=== PATIENT | female | born 1955 | race Caucasian/White ===

== ENCOUNTER → 2018-06-19 | Outpatient (CLI) | payer MEDICARE, BC ==
--- NOTE | 2018-06-19 17:12 | BD ---
EXAMINATION TYPE: Axial Bone Density DATE OF EXAM: 06/19/2018 COMPARISON: NONE CLINICAL HISTORY: 63-year-old female postmenopausal screening Height: 63.2 IN Weight: 202 LBS FRAX RISK QUESTIONS: Family History (Parent hip fracture): YES FATHER AGE 80 RISK FACTORS HISTORY OF: Active: YES Postmenopausal woman: AGE 49 MEDICATIONS: Additional Medications: CALCIUM, VIT D, TRAZODONE, LAMICTAL, PRISTIQUE, ACID REFLUX MEDS Additional History: BREAST CANCER WITH CHEMO AND RADIATION AGE 57 EXAM MEASUREMENTS: Bone mineral densitometry was performed using the MaxLinear System. Bone mineral density as measured about the Lumbar spine is: ----- L1-L4(G/cm2): 1.151 T Score Values are as follows: ----- L2: -0.1 ----- L3: 1.5 ----- L4: -0.8 ----- L1-L4: -0.2 Bone mineral density BASELINE Bone mineral density about the R hip (g/cm2): 0.775 Bone mineral density about the L hip (g/cm2): 0.777 T Score values are as follows: -----R Neck: -1.9 -----L Neck: -1.9 -----R Total: -1.1 -----L Total: -0.9 Bone mineral density BASELINE IMPRESSION: Osteopenia (T Score between -2.5 and -1). There is slightly increased risk of fracture and the patient may be considered for treatment. Re-Screen 2-5 years. NOTE: T-SCORE=SD OF THE YOUNG ADULT MEAN.
== END ==
LOC: RADBDWWP 12:40
PROVIDERS: ATTEND Family Medicine
DX: Z13.820 Encounter for screening for osteoporosis (principal); M85.80 Other specified disorders of bone density and structure, unspecified site; Z78.0 Asymptomatic menopausal state
CPT/HCPCS: 77080

== ENCOUNTER → 2019-04-18 | Outpatient (CLI) | payer MEDICARE, BC ==
--- NOTE | 2019-04-18 14:07 | XR ---
Lumbosacral spine HISTORY: Right sciatic pain, increasing low back pain 5 views of lumbosacral spine There is a dextroscoliosis centered at L2-3. Suspect only rudimentary rib at T12. Surgical clips pres ent right upper quadrant. Bone mineralization is reduced. There is loss of disc height greatest at L2 -3 with associated vacuum phenomenon, spondylosis. Anterolisthesis grade 1 L5-S1. No evident spondylo lysis. Sclerosis present in the posterior elements of the lower lumbar spine. Apical scarring vascula r calcifications noted within the aortoiliac distribution. Lumbar vertebral bodies show preserved hei ght. There is multilevel spondylosis. IMPRESSION: Scoliosis, degenerative disease and facet arthropathy. Osteopenia limits sensitivity.
== END | disposition home or self-care (01) ==
LOC: RADXRYALE 11:15
PROVIDERS: ATTEND Internal Medicine
DX: M51.37 Other intervertebral disc degeneration, lumbosacral region (principal); M85.80 Other specified disorders of bone density and structure, unspecified site; M46.97 Unspecified inflammatory spondylopathy, lumbosacral region; M41.87 Other forms of scoliosis, lumbosacral region
CPT/HCPCS: 72110

== ENCOUNTER → 2019-05-12 | Outpatient (CLI) | payer MEDICARE ==
--- NOTE | 2019-05-12 14:26 | MR ---
EXAMINATION TYPE: MR lumbar spine wo con DATE OF EXAM: 05/12/2019 COMPARISON: None HISTORY: Low back pain Multiplanar multiecho imaging of the lumbar spine was performed with no contrast. There is lumbar levorotoscoliosis. There is degenerative disc space narrowing throughout the lumbar s pine. This is more severe at L2-3 and L5-S1. There is 1 cm anterior subluxation of L5 in relation S1. There is apparent bilateral L5 spondylolysis. There is posterior disc herniation at L2-3 and L3-4. T here is some lateral recess stenosis due to facet arthropathy at L2-3 and L3-4. There is right side L 2-3 neural foraminal stenosis. There is left side L3-4 and L4-5 neural foraminal stenosis. There is n o compression fracture. There is no lumbar paraspinal mass. I see no focal bone destruction. Sacroili ac joints appear intact. IMPRESSION: Multilevel spondylotic changes with levoscoliosis. First-degree L5-S1 spondylolisthesis. Multilevel f acet arthropathy. Mild lateral recess stenosis. Small posterior disc herniations at L2-3 and L3-4.
== END | disposition home or self-care (01) ==
LOC: RADMRIMAIN 08:53
PROVIDERS: ATTEND Internal Medicine
DX: M48.061 Spinal stenosis, lumbar region without neurogenic claudication (principal); M51.26 Other intervertebral disc displacement, lumbar region; M43.17 Spondylolisthesis, lumbosacral region; M47.816 Spondylosis without myelopathy or radiculopathy, lumbar region; M46.96 Unspecified inflammatory spondylopathy, lumbar region; M41.86 Other forms of scoliosis, lumbar region
CPT/HCPCS: 72148

== ENCOUNTER → 2022-09-13 | Outpatient (CLI) | payer MEDICARE ==
[2022-09-14 02:26] LABS: African American GFR (CKD) 68.1 (60.0-200.0); Anion Gap 10.8 mmol/L (10.00-18.00); BUN/Creat Ratio 9.32 Ratio (12.00-20.00); Blood Urea Nitrogen 9.2 mg/dL (9.0-27.0); Calcium 10.1 mg/dL (8.7-10.3); Carbon Dioxide 27.4 mmol/L (20.0-27.5); Non-African American GFR(CKD) 58.7 (60.0-200.0); Potassium 4.7 mmol/L (3.5-5.5)
[2022-09-14 02:50] LABS: Basophils # (A) 0.04 X 10*3/uL (0.00-0.10); Basophils % (A) 0.7 %; Eosinophils # (A) 0.06 X 10*3/uL (0.04-0.35); HCT 44.9 % (37.2-46.3); HGB 14.1 g/dL (12.0-15.0); Immature Grans, Automated 0.2 %; Lymphocytes # (A) 1.73 X 10*3/uL (0.90-5.00); Lymphocytes % (A) 28.4 %; MCH 28.9 pg (27.0-32.0); MCHC 31.4 g/dL (32.0-37.0); Monocytes # (A) 0.57 X 10*3/uL (0.20-1.00); Monocytes % (A) 9.4 %; NRBC Per 100 WBC 0 /100 WBCS (0.0-0.0); Neutrophils # (A) 3.68 X 10*3/uL (1.80-7.70); Neutrophils % (A) 60.3 %; Platelet Count 213 X 10*3/uL (140-440); RBC 4.88 X 10*6/uL (4.10-5.20); RDW 12.7 % (11.5-14.5); WBC 6.09 X 10*3/uL (4.50-10.00)
[2022-09-14 03:01] LABS: Appearance,Urine Turbid (Clear); Bilirubin,Urine Negative (Negative); Blood,Urine Negative (Negative); Color,Urine Yellow (Yellow); Ketones,Urine Negative (Negative); Nitrite,Urine Negative (Negative); Specific Gravity,Urine 1.024 (1.001-1.030)
[2022-09-14 03:16] LABS: Bacteria,Urine 2+ /HPF (None Seen); Mucus,Urine Present /LPF (None Seen); UA Starch Present /LPF (None Seen)
== END | disposition home or self-care (01) ==
LOC: LABPAT 14:01
PROVIDERS: ATTEND Urology
DX: Z01.812 Encounter for preprocedural laboratory examination (principal); N81.9 Female genital prolapse, unspecified; R31.29 Other microscopic hematuria; R53.83 Other fatigue
CPT/HCPCS: 36415; 80048; 81001; 85025; 87086; 93005

== ENCOUNTER 2022-09-30 09:23 | Observation (INO) | payer MEDICARE ==
[2022-09-22 12:46] VITALS: BMI 32.2
--- NOTE | 2022-09-30 07:19 | P.HPIHPCON ---
History of Present Illness H&P Date: 09/30/22 Chief Complaint: Pelvic organ prolapse This is a 67-year-old female with history of a stage III cystocele, she is symptomatic from her cystocele. Options of robotic sacralcolpopexy, versus vaginal repair, versus a pessary was discussed with her in detail. Risk and benefit of each approach was discussed. She agreed to proceed with a robotic sacral colpopexy. Discussed with her the risk which includes but not limited to bleeding, infection, injury to nearby organs. Discussed also I will be using mesh. Discussed risk of mesh erosion into the bladder, vagina, the rectum. Discussed also potential of developing stress incontinence after addressing her prolapse. Medical complications were also discussed. She understood all the risk and agreed to proceed Consent for Procedure: I have explained the operation/procedure to the patient, including the risks, benefits, side effects, alternative therapies (including not receiving the proposed treatment or service), the likelihood of the patient achieving his/her goals, and potential recuperation problems for the procedure/sedation/analgesia, as well as any blood products, if indicated. I also explained to the patient the risks, benefits and side effects of the alternatives, as well as the risks related to not receiving the proposed procedure, care, treatment, or services. Past Medical History Past Medical History: Cancer, GERD/Reflux, Hyperlipidemia, Seizure Disorder Additional Past Medical History / Comment(s): left breast cancer. last seizure 1982 History of Any Multi-Drug Resistant Organisms: None Reported Past Surgical History: Breast Surgery, Cholecystectomy, Hysterectomy, Joint Replacement, Orthopedic Surgery Additional Past Surgical History / Comment(s): left breast lumpectomy. cecilia. knee replacements Past Anesthesia/Blood Transfusion Reactions: Motion Sickness, Postoperative Nausea & Vomiting (PONV) Smoking Status: Never smoker - Past Family History Sister(s) Family Medical History: Hypertension Additional Family Medical History / Comment(s): pts twin Mother Family Medical History: No Reported History Medications and Allergies Home Medications Medication Instructions Recorded Confirmed Type Desvenlafaxine Succinate [Pristiq] 50 mg PO QAM 09/22/22 09/29/22 History Lovastatin [Mevacor] 10 mg PO HS 09/22/22 09/29/22 History Pantoprazole [Protonix] 40 mg PO QAM 09/22/22 09/29/22 History lamoTRIgine [LaMICtal] 150 mg PO BID 09/22/22 09/29/22 History traZODone HCL 100 mg PO HS 09/22/22 09/29/22 History Cephalexin [Keflex] 500 mg PO Q12HR 09/29/22 09/29/22 History Allergies Allergy/AdvReac Type Severity Reaction Status Date / Time No Known Allergies Allergy Verified 09/29/22 14:34
[~2022-09-30 09:23] MED LIST: DEXAMETHASONE SOD PHOSPHATE 4 MG/ML 1 ML VIAL IV ONE; HYDROmorphone 0.5 MG/0.5 ML SYRINGE IVP PRN; MIDAZOLAM 2 MG/2 ML VIAL IV PRN; ONDANSETRON 4 MG/2 ML VIAL IVP ONE
[2022-09-30] MEDS: LACTATED RINGERS 1,000 ML IV SCH (09:55)
[2022-09-30] MEDS ORDERED: LACTATED RINGERS 1,000 ML IV ONE ×2 (09:55→14:41)
[2022-09-30] MEDS ORDERED: ONDANSETRON 4 MG/2 ML VIAL IVP PRN (11:36)
[2022-09-30] MEDS ORDERED: HYDROcodone/APAP 5-325MG 1 EACH TAB PO PRN (11:37)
[2022-09-30] MEDS ORDERED: MIDAZOLAM 2 MG/2 ML VIAL ONE (12:23)
[2022-09-30] MEDS ORDERED: fentaNYL (PF) 50 MCG/ML 2 ML AMP ONE (12:23)
[2022-09-30] MEDS ORDERED: GLYCOPYRROLATE 0.2 MG/ML 2 ML VIAL ONE (12:23)
[2022-09-30] MEDS ORDERED: PROPOFOL 10 MG/ML 20 ML VIAL IV ONE (12:23)
[2022-09-30] MEDS ORDERED: HYDROmorphone (PF) 1 MG/ML ONE (12:23)
[2022-09-30] MEDS ORDERED: NEOSTIGMINE 1 MG/ML 10 ML VIAL ONE (12:23)
[2022-09-30] MEDS ORDERED: ROCURONIUM 10 MG/ML (5 ML VIAL) IV ONE (12:23)
[2022-09-30] MEDS ORDERED: LIDOCAINE 2% INJ 20 MG/ML (2 ML VIAL) ONE (12:23)
[2022-09-30] MEDS ORDERED: SUCCINYLCHOLINE CHLORIDE 200 MG/10 ML VIAL IV ONE (12:23)
[2022-09-30] MEDS ORDERED: BUPIVACAINE (PF) 0.25% 30 ML VIAL SQ ONE ×2 (14:37)
[2022-09-30] MEDS: HEPARIN SODIUM,PORCINE/PF 5,000 UNIT/0.5 ML SYRINGE SQ SCH (18:37)
[2022-09-30] MEDS: KETOROLAC 15 MG/ML 1 ML VIAL IVP SCH (18:46)
[2022-09-30] MEDS ORDERED: ATORVASTATIN 10 MG TAB PO SCH (21:00)
[2022-09-30] MEDS ORDERED: traZODone HCL 100 MG TAB PO SCH (21:00)
[2022-09-30] MEDS: lamoTRIgine 100 MG TAB PO SCH (21:51)
[2022-09-30] MEDS: D5-0.45% NACL WITH KCL 20MEQ/L 1,000 ML IV SCH (21:52)
[2022-10-01] MEDS: HEPARIN SODIUM,PORCINE/PF 5,000 UNIT/0.5 ML SYRINGE SQ SCH ×2 (00:51→08:34)
[2022-10-01] MEDS: KETOROLAC 15 MG/ML 1 ML VIAL IVP SCH ×3 (00:51→11:18)
[2022-10-01] MEDS: D5-0.45% NACL WITH KCL 20MEQ/L 1,000 ML IV SCH (05:36)
[2022-10-01] MEDS: LACTATED RINGERS 1,000 ML IV SCH (06:37)
[2022-10-01] MEDS ORDERED: PANTOPRAZOLE 40 MG TABLET PO SCH (07:30)
[2022-10-01 07:34] VITALS: BP 133/75; PULSE 72; RESP 16; TEMP 97.8
--- NOTE | 2022-10-01 08:16 | P.DS ---
Providers Date of admission: 10/01/22 07:35 Attending physician: Clyde Ruelas MD Primary care physician: [facility] Course: The patient is 67 and underwent a sacral colpopexy yesterday by for vaginal prolapse. She did well overnight. Her pain is under control. Her urine is clear. Her abdomen is soft. I will discontinue her Cartwright and IV. She'll ambulate and eat a regular diet. If she tolerates that well she'll be discharged home. She'll be sent home on a regular diet limited activity follow- up in the office in one week. Postoperative instructions been given. Condition is good. Patient Condition at Discharge: Good Plan - Discharge Summary Discharge Rx Participant: Yes New Discharge Prescriptions: New Ketorolac [Toradol] 10 mg PO Q6HR PRN #20 tab PRN Reason: Pain Control No Action Desvenlafaxine Succinate [Pristiq] 50 mg PO QAM lamoTRIgine [LaMICtal] 150 mg PO BID Lovastatin [Mevacor] 10 mg PO HS Pantoprazole [Protonix] 40 mg PO QAM traZODone HCL 100 mg PO HS Cephalexin [Keflex] 500 mg PO Q12HR Discharge Medication List Desvenlafaxine Succinate [Pristiq] 50 mg PO QAM 09/22/22 [History] Lovastatin [Mevacor] 10 mg PO HS 09/22/22 [History] Pantoprazole [Protonix] 40 mg PO QAM 09/22/22 [History] lamoTRIgine [LaMICtal] 150 mg PO BID 09/22/22 [History] traZODone HCL 100 mg PO HS 09/22/22 [History] Cephalexin [Keflex] 500 mg PO Q12HR 09/29/22 [History] Ketorolac [Toradol] 10 mg PO Q6HR PRN #20 tab 10/01/22 [Rx] Follow up Appointment(s)/Referral(s): Clyde Ruelas MD [STAFF PHYSICIAN] - 1 Week Discharge Disposition: HOME SELF-CARE
[2022-10-01] MEDS: lamoTRIgine 100 MG TAB PO SCH (08:34)
[2022-10-01] MEDS ORDERED: DESVENLAFAXINE SUCCINATE 50 MG TAB.ER.24H PO SCH (09:00)
--- NOTE | 2022-10-02 13:05 | P.OP ---
Date of Procedure: 10/02/22 Preoperative Diagnosis: Cystocele Postoperative Diagnosis: Same Procedure(s) Performed: Robotic sacral colpopexy Implants: Y coloplast mesh Anesthesia: CUATEA Surgeon: Clyde Ruelas Plant And Maintenance Technician #1: Melvin Wray Estimated Blood Loss (ml): 50 Pathology: none sent Condition: stable Disposition: PACU Indications for Procedure: This is a 67-year-old female with history of a stage III cystocele, she is symptomatic from her cystocele. Options of robotic sacralcolpopexy, versus vaginal repair, versus a pessary was discussed with her in detail. Risk and benefit of each approach was discussed. She agreed to proceed with a robotic sacral colpopexy. Discussed with her the risk which includes but not limited to bleeding, infection, injury to nearby organs. Discussed also I will be using mesh. Discussed risk of mesh erosion into the bladder, vagina, the rectum. Discussed also potential of developing stress incontinence after addressing her prolapse. Medical complications were also discussed. She understood all the risk and agreed to proceed Description of Procedure: She was taken to the OR and administered general anesthesia and placed in lithotomy position. Insufflation was obtained using the Veress needle. Next the robotic camera port was placed above the umbilicus, a 8mm robotic port was placed on the right side, an additional 12 mm tourist information assistant port was placed more lat erally. 2 robotic ports were placed on the left. The robot was then docked and the tourist information assistant sac between the patient's legs with a vaginal sizer. Patient had adhesion along the left lower quadrant, which were lysed sharply . attention was then carried to the prolapse With firm upward traction on the vagina and angle downwards, and with the monopolar scissors and fenestrated bipolar and the bladd er was reflected off the vagina. Minor bleeding points were controlled with bipolar. Once the anterior dissection was completed the attention was directed to the posterior dissection. The tourist information assistant pushed the sizer in an upwards and the rectum was completely dissected off the vagina down to the perineal body. Again all minor bleeding points were coagulated. Tension was then directed to the sacral promontory. The sigmoid was reflected to the left with the fourth arm, and an incision was made on the peritoneum over the sacral promontory. The entire sacral promontory was dissected, and the fat was excised to expose adequate amount of periosteum and bone to place 2 layers of sutures. Hemostasis was confirmed. The peritoneum posteriorly was incised from the sacral promontory to the vaginal opening to facilitate placement of the mesh. Attention was now directed to the Y mesh. The Y mesh was trimmed to the necessary size and introduced into the body through the 12 mm port. The Y mesh was placed over the vagina with one limb each on the anterior and posterior vaginal wall. Using 2-0 Ethibond interrupted sutures 3 layers of sutures were placed thereby fixing the mesh to the anterior vaginal wall. Care was taken to advance the mesh all the way distally. Attention was then directed to the posterior vaginal wall and the mesh was fixed to the posterior vaginal wall using 2 layers of 2-0 Ethibond, 2 sutures in each layer. Again the sutures were placed as distally as possible to the perineal body. Attention was taken so as to not enter the vagina with the sutures. Once the 2 limbs of the Y mesh was securely placed, attention was directed to the sacral promontory. The tourist information assistant was asked to push the sizer firmly superiorly and the single Lembert of the Y mesh was then fixed to the sacral promontory in 2 layers with interrupted sutures. Gortex interrupted sutures were used to fix the mesh to the periosteum of the sacral promontory. Once this was completed the sizer was removed from the vagina and inspection of the vagina with a speculum showed complete resolution of the cystocele Hemostasis was again confirmed. A 2-0 lock was then used to close the per itoneum incision so as to extrapertonialize the mesh completely. All the sutures and mesh pieces were removed. A count was performed which was correct. And the abdomen was desufflated and all ports were removed. All the incisions were closed with 4-0 Monocryl subcuticular sutures and the patient was sent to recovery in stable condition with the Cartwright catheter
== END 2022-10-01 13:12 | disposition home or self-care (01) ==
LOC: OR 09:23 → 4SSUR 15:37 → OR 10-01 07:35 → 4SSUR 10-01 07:35
PROVIDERS: ADMIT Urology; ATTEND Urology
DX: N81.10 Cystocele, unspecified (principal); K21.9 Gastro-esophageal reflux disease without esophagitis; E78.5 Hyperlipidemia, unspecified; G40.909 Epilepsy, unspecified, not intractable, without status epilepticus; Z79.899 Other long term (current) drug therapy; Z85.3 Personal history of malignant neoplasm of breast; Z90.49 Acquired absence of other specified parts of digestive tract; Z90.710 Acquired absence of both cervix and uterus; Z96.653 Presence of artificial knee joint, bilateral; Z98.890 Other specified postprocedural states; Z82.49 Family history of ischemic heart disease and other diseases of the circulatory system
CPT/HCPCS: 86900; 86901; 86850; 57425; G0378; C1781; J2250; J0330; J1100; J2710; J0690; J2405; J3010; J1170 ×2; J1885 ×2; J2704; J1644; J2001

== ENCOUNTER → 2023-08-10 | Outpatient (CLI) | payer MEDICARE ==
--- NOTE | 2023-08-10 15:28 | XR ---
EXAMINATION TYPE: XR ankle complete bilateral DATE OF EXAM: 08/10/2023 COMPARISON: NONE HISTORY: Pain FINDINGS: Three views of the bilateral ankle demonstrate the ankle mortise to be intact and symmetric. Mild generalized osteopenia. There are moderate-sized calcaneal spurs bilaterally. The ankle mortise is maintained bilaterally. There is no acute fracture or dislocation. IMPRESSION: 1. Moderate sized bilateral calcaneal spurs.
== END | disposition home or self-care (01) ==
LOC: RADXRYALE 14:06
PROVIDERS: ATTEND Psychiatry & Neurology Neurology
DX: M77.31 Calcaneal spur, right foot (principal); M77.32 Calcaneal spur, left foot

== ENCOUNTER → 2024-09-10 | Outpatient (CLI) | payer MEDICARE ==
--- NOTE | 2024-09-10 09:33 | MR ---
EXAMINATION TYPE: MR parisaine/lspine wo con DATE OF EXAM: 09/10/2024 8:09 AM COMPARISON: None. CLINICAL INDICATION: Female, 69 years old with history of M54.16,M62.81,G95.14,Z98.1, Mid/low back pa in into lower extremities TECHNIQUE: Multiplanar, multisequence imaging of the thoracic and lumbar spine is performed without I V contrast. FINDINGS: THORACIC SPINE: S-shaped scoliosis of the thoracolumbar spine. The sagittal T2 counting sequence shows prominent degenerative change in the cervical spine especiall y C3-C6 levels where large disc osteophyte complexes may contribute to narrowing of the spinal canal down to 5 mm. Possible atrophic cord at C5-C6. Preserved alignment of the thoracic spine. Mild intervertebral disc desiccation throughout the thoracic spine. Tiny scattered paracentral disc p rotrusions. No large focal disc herniation or significant spinal canal stenosis. There is a fatty matrix hemangioma within the T10 vertebral body with internal stippling. Suspect an additional smaller fatty matrix hemangioma posterior T4 vertebral body. Moderate hypertrophic facet arthropathy especially toward the left in the mid and lower thoracic spin e. Vertebral body heights are preserved. On the left, there is moderate neural foraminal stenosis from T6 through T10 vertebral bodies. Additi onal scattered mild left-sided foraminal narrowing is present. On the right, moderate neuroforaminal stenosis C6/C7 and C7-T1. LUMBAR SPINE: Incidental 4.3 cm round solid mass upper pole left kidney. Levoconvex scoliosis lumbar spine. Moderate to severe degenerative disc disease especially towards the right side of concavity with asso ciated Modic type I edematous endplate change especially L2-L5 levels. Suspect multiple fatty matrix hemangioma is throughout the lumbar spine with a T1 and T2 hyperintensi ty. Bilateral L5 pars defects with prominent grade 1 anterolisthesis L5-S1. Ligamentum flavum thickening throughout with moderate to severe hypertrophic facet arthropathy. Degenerative additional degenerative grade 1 retrolisthesis L1-L2 and L2-L3. At L3-L4, there is combination of bulging disc, hypertrophic facet arthropathy, ligamentum flavum thi ckening which causes focal or moderate to severe spinal canal stenosis with severe right and moderate left neuroforaminal stenosis. At L2-L3, hypertrophic facet arthropathy with degenerative grade 1 retrolisthesis, diffuse disc bulge , ligamentum flavum thickening, and facet arthropathy contributes to moderate spinal canal stenosis w ith moderate to severe right and moderate left neuroforaminal stenosis. Changes resulted in additional mild spinal canal stenoses at L1-L2 and L4-L5. On the right, moderate to severe neuroforaminal stenosis L5-S1 and moderate at L1-L2. Mild L4-L5. On the left, severe neuroforaminal stenosis at L4-L5 and L5-S1. Mild L1-L2. IMPRESSION: THORACIC SPINE: 1. S-SHAPED SCOLIOSIS OF THE THORACOLUMBAR SPINE. NO VERTEBRAL COMPRESSION COLLAPSE OR MALALIGNMENT. 2. MILD DEGENERATIVE DISC DISEASE THROUGHOUT WITH very tiny disc protrusions. No large focal disc her niation or significant spinal canal stenosis. 3. Moderate facet arthropathy particularly towards the left in the mid and lower thoracic spine. Lou ges result in moderate left neuroforaminal stenosis from T6 through T10 levels. Moderate on the right at C6-C7 and C7-T1. 4. Incidental disc herniations noted within the cervical spine C3-C6 levels. Variable spinal canal st enosis at these levels with canal narrowing down to 5 mm AP dimension. Atrophic appearance to the cer vical spinal cord at C5-C6 could be from chronic compressive myelomalacia. Correlate for any myelopat hic symptoms. LUMBAR SPINE: 5. INCIDENTAL 4.3 CM HETEROGENEOUS SOLID MASS UPPER POLE LEFT KIDNEY FOR WHICH FURTHER WORKUP AND URO LOGY REFERRAL IS ADVISED. RCC NOT EXCLUDED AT THIS TIME. 6. Degenerated levoconvex scoliosis lumbar spine. Moderate to severe multilevel spondylotic change. A ssociated edematous Modic type I endplate change towards the right side of concavity. 7. Bilateral L5 pars defects with prominent grade 1 anterolisthesis L5-S1. Degenerative grade 1 retro listhesis L1-L2 and L2-L3. 8. Changes result in focal moderate to severe spinal canal stenosis at L3-L4 and moderate at L2-L3. M ild at both L1-L2 and L4-L5. 9. Severe right and moderate left neuroforaminal stenosis at L3-L4. Moderate to severe right and mode rate left neuroforaminal stenosis at L2-L3. 10. Also, severe left neuroforaminal stenosis L4-L5 and L5-S1 and moderate to severe on the right at L5-S1. [facility], Workstation: [employer], 09/10/2024 9:30 AM
== END | disposition home or self-care (01) ==
LOC: RADMRIMAIN 06:53
PROVIDERS: ATTEND Orthopaedic Surgery
DX: M51.16 Intervertebral disc disorders with radiculopathy, lumbar region (principal); M42.06 Juvenile osteochondrosis of spine, lumbar region; M41.85 Other forms of scoliosis, thoracolumbar region; M47.814 Spondylosis without myelopathy or radiculopathy, thoracic region; M48.02 Spinal stenosis, cervical region; R60.9 Edema, unspecified; M43.17 Spondylolisthesis, lumbosacral region; M99.73 Connective tissue and disc stenosis of intervertebral foramina of lumbar region; M48.061 Spinal stenosis, lumbar region without neurogenic claudication; M47.26 Other spondylosis with radiculopathy, lumbar region; Z98.1 Arthrodesis status
CPT/HCPCS: 72146; 72148